=== PATIENT | female | born 1950 | race Caucasian/White ===

== ENCOUNTER 2021-12-25 09:02 | Emergency (ER) | payer MEDICARE, SELFPAY ==
[2021-12-25 09:02] VITALS: BP 140/86; PULSE 72; RESP 16; TEMP 36.8; O2SAT 98; BMI 32.3
[2021-12-25 09:10] VITALS: BP 140/86; PULSE 72; RESP 16; TEMP 36.8; O2SAT 98; BMI 32.5
--- NOTE | 2021-12-25 09:35 | HMH.EDUTC ---
[facility] [place] Clinical Impression: Infected tick bite of scalp Qualifiers: Encounter type: initial encounter Qualified Code(s): S00.06XA - Insect bite (nonvenomous) of scalp, initial encounter; L08.9 - Local infection of the skin and subcutaneous tissue, unspecified; W57.XXXA - Bitten or stung by nonvenomous insect and other nonvenomous arthropods, initial encounter Disposition: Home, Self-Care Condition on Discharge: Good Instructions: DI for Cellulitis -- Adult Additional Instructions: Take antibiotics as directed until gone. Use sun protection while on antibiotics. Return to [facility] if symptoms worsen. Prescriptions: Doxycycline Monohydrate [Doxycycline [place] 100mg Tab] 100 mg PO Q12 10 Days #20 tab Transmission Status: Pending to [facility] Referrals: Jeni Cohen MD [Primary Care Provider] - Time of Disposition: 09:47 Medical Decision Making - Rony Inquiry Pt receiving controlled substance: No Vital Signs: 12/25/21 09:02 12/25/21 09:10 Temperature 98.3 F 98.3 F Temperature Source Oral Oral Pulse Rate [Radial] 72 72 Respiratory Rate 16 16 Blood Pressure [Right Arm] 140/86 140/86 Blood Pressure Mean [Right Arm] 104 104 Blood Pressure Source [Right Arm] Automatic Cuff Blood Pressure Position [Right Arm] Sitting Sitting 02 Sat by Pulse Oximetry 98 98 Oxygen Delivery Method Room Air Room Air [facility] [place] HPI - General Stated complaint: tick bite 12/24, numbness Time Seen by Provider: 12/25/21 09:35 Mode of Arrival: Ambulatory Source of Information: Patient Limitations: No Limitations Description of Symptoms (Recalled from Triage Doc. by RN): PATIENT STATES SHE HAD A TICK IN RIGHT SIDE OF TOP OF HEAD THAT SHE NOTICED LAST NIGHT. SHE REPORTS HE REMOVED THE TICK AND THINKS HE GOT IT ALL OUT. PATIENT C/O NUMBNESS TO AREA WHERE TICK WAS HEENT Symptoms (Recalled from RN notes): Yes Resp Symptoms (Recalled from RN notes): No Skin Symptoms (Recalled from RN notes): Yes MS Symptoms (Recalled from RN notes): No Functional Status (Recalled from RN notes): WNL - History of Present Illness Provider Complaint: Patient found an attached tick on the right crown area of her head last night. Her removed it and is fairly certain it was removed in its entirety, but it seemed to be engorged so she isn't sure how long it had been there. The area on top of her scalp where it bit her feels numb to touch. No fever. No body aches. No vomiting or diarrhea. Onset (ago): day(s) (1) Location: head Relieving factors: none Exacerbating factors: none Associated symptoms: denies other symptoms Treatments prior to arrival: none - Related Data Previous Rx's Medication Instructions Recorded Doxycycline Monohydrate 100 mg PO Q12 10 Days #20 tab 12/25/21 [Doxycycline [place] 100mg Tab] Allergies Allergy/AdvReac Type Severity Reaction Status Date / Time Penicillins Allergy Verified 12/25/21 09:33 - Worker's Comp Is this a Worker's Comp case?: No [facility] History - Hepatitis A Screen Attestation statement:: This patient has been screened for Hepatitis A risk factors. I have reviewed the patient's past medical history: Yes ROS Obtained: Yes All systems reviewed & no additional complaints - Integumentary/Breasts Skin/Breast: Reports as per HPI, Reports itching, Reports rash Physical Exam - General General appearance: alert, in no apparent distress - Head Head exam: normocephalic - Expanded Head Exam Head exam physical: Present: other (5 mm erythematous, edematous lesion right crown area) - Eye Eye exam: Present: normal appearance, PERRL - Chest Chest inspection: Present: normal inspection - Respiratory Respiratory exam: Present: normal lung sounds bilaterally - Cardiovascular Cardiovascular exam: Present: regular rate, normal rhythm - Neurological Exam Neurological exam: Present: alert, oriented X3 - Psychiatric Psychiatric exam: Present: normal affect,
[2021-12-25 09:51] VITALS: BP 140/86; PULSE 72; RESP 16; TEMP 36.8; O2SAT 98
== END 2021-12-25 09:55 | disposition home or self-care (01) ==
PROVIDERS: Emergency Provider Physician Assistant; PCP Family Medicine
DX: S00.06XA Insect bite (nonvenomous) of scalp, initial encounter (principal); W57.XXXA Bitten or stung by nonvenomous insect and other nonvenomous arthropods, initial encounter
CPT/HCPCS: 99283

== ENCOUNTER 2024-06-17 09:52 | Outpatient (CLI) | payer MEDICARE, SELFPAY ==
[2024-06-17 10:36] LABS: Uric Acid 3.3 mg/dl (2.5-6.2)
== END 2024-06-17 23:59 | disposition home or self-care (01) ==
PROVIDERS: PCP Family Medicine; Visit Provider Podiatrist Foot & Ankle Surgery
DX: M10.071 Idiopathic gout, right ankle and foot (principal); M24.871 Other specific joint derangements of right ankle, not elsewhere classified; R60.0 Localized edema; M79.671 Pain in right foot; M79.672 Pain in left foot
CPT/HCPCS: 36415; 84550

== ENCOUNTER 2024-07-14 09:12 | Emergency (ER) | payer MEDICARE, SELFPAY ==
--- NOTE | 2024-07-14 10:15 | EXP.UTC ---
Discharge Plan Disposition Patient Disposition: Home, Self-Care Condition: Good Prescriptions Prescriptions: New ciprofloxacin HCl [Cipro] 500 mg tablet 500 mg PO BID 10 Days Qty: 20 0RF ondansetron 4 mg Tablet,Disintegrating 4 mg PO Q8H PRN (Reason: Nausea) Qty: 12 0RF No Action doxycycline monohydrate 100 MG tablet 100 mg PO Q12 10 Days Qty: 20 0RF Referrals Follow up/Referrals: Jeni Cohen MD [Primary Care Provider] - See instructions Activity Restrictions/Add. Instructions Additional Instructions/Restrictions: Drink plenty of fluids. Take tylenol or ibuprofen for pain or fever. Take the medications as directed. Follow up with your regular doctor. GO TO THE ER FOR ANY WORSENING SYMPTOMS Clinical Impressions Clinical Impression: Diverticulitis Instructions Patient Instructions: DI for Diverticulitis, Ondansetron, Ciprofloxacin Print Language Print Language: Bulgarian Discharge ED Provider: Chriss Mackenzie [facility] General Stated complaint: lower abd pain Time Seen by Provider: 07/14/24 10:15 History of Present Illness Provider Complaint: She states that for the past 2 days she has been having the symptoms she has when she has a diverticulitis flare up. She refuses lab work and she refuses to be transferred to the er. Related Data Previous Rx's ?Medication ?Instructions ?Recorded doxycycline monohydrate 100 mg 100 mg PO Q12 10 days #20 tabs 12/25/21 tablet ciprofloxacin HCl 500 mg tablet 500 mg PO BID 10 days #20 tabs 07/14/24 (Cipro) ondansetron 4 mg disintegrating 4 mg PO Q8H PRN Nausea #12 tabs 07/14/24 tablet Allergies Allergy/AdvReac Type Severity Reaction Status Date / Time Penicillins Allergy Verified 12/25/21 09:33 [facility] Disclaimer: The information contained in this section may have been updated after the patient was seen, as this information can be updated by other users. Social History Smoking Status: Never smoker alcohol intake: never current occupational status: retired Travel in the last 8 weeks: None ROS Obtained: Yes All systems reviewed & no additional complaints except as documented Constitutional Constitutional: Denies chills, Denies fever(s) and Reports poor appetite ENT Ears, Nose, Mouth, and Throat: Denies dizziness and Denies sore throat Cardiovascular Cardiovascular: Denies dyspnea Respiratory Respiratory: Denies chest congestion, Denies cough and Denies dyspnea Gastrointestinal Gastrointestingal: Reports as per HPI Genitourinary Female Genitourinary: Denies difficulty voiding, Denies dysuria, Denies hematuria, Denies urinary frequency, Denies urinary incontinence, Denies urinary hesitancy and Denies urinary urgency Musculoskeletal Musculoskeletal: Denies arthralgias Integumentary/Breasts Skin/Breast: Denies rash Neurologic Neurologic: Denies dizziness Physical Exam General General appearance: alert and in no apparent distress Head Head exam: atraumatic and normocephalic Eye Eye exam: Present normal appearance, PERRL and EOMI ENT ENT exam: Present normal exam, normal oropharynx, mucous membranes moist, TM's normal bilaterally and normal external ear exam Neck Neck exam: Present normal inspection, full ROM and trachea midline; Absent tenderness, meningismus or lymphadenopathy Chest Chest inspection: Present normal inspection and symmetric chest wall rise; Absent tenderness, rash or abscess Respiratory Respiratory exam: Present normal lung sounds bilaterally; Absent respiratory distress, wheezes or stridor Cardiovascular Cardiovascular exam: Present regular rate and normal rhythm; Absent irregular rhythm, systolic murmur, diastolic murmur or JVD Abdominal Exam Abdominal exam: Present soft and normal bowel sounds; Absent distention, tenderness, guarding, rebound, rigidity, psoas sign, obturator sign, heel tap sign, Lott's sign, Rovsing's sign or tenderness at McBurney's Point Extremities Exam Extremities exam: Present normal inspection and full ROM; Absent tenderness Back Exam Back exam: Present normal inspection and full ROM; Absent tenderness, CVA tenderness (R) or CVA tenderness (L) Neurological Exam Neurological exam: Present alert, oriented X3 and CN II-XII intact Psychiatric Psychiatric exam: Present normal affect and normal mood Skin Skin exam: Present warm, dry, intact and normal color Lymphatic Lymphatic Findings: no adenopathy Medical Decision Making Medical Records Medical records reviewed: No I reviewed the patient's medical records. Screening: Per USPSTF and CDC recommendations, given the prevalence of disease in our region, it is our hospital?s policy to screen for HIV and viral Hepatitis for all patients aged 18 and over and those with ongoing risk factors. Rony Inquiry Pt receiving controlled substance: No
[2024-07-14 10:29] VITALS: BP 121/65; PULSE 78; RESP 18; TEMP 36.6; O2SAT 97; BMI 31.1
[2024-07-14 10:41] VITALS: BP 121/65; PULSE 78; RESP 18; TEMP 36.6
== END 2024-07-14 10:42 | disposition home or self-care (01) ==
PROVIDERS: Emergency Provider Nurse Practitioner Family; PCP Family Medicine
DX: K57.92 Diverticulitis of intestine, part unspecified, without perforation or abscess without bleeding (principal); R10.9 Unspecified abdominal pain; R63.8 Other symptoms and signs concerning food and fluid intake
CPT/HCPCS: 99212; G0381

== ENCOUNTER 2025-07-25 10:45 | Emergency (ER) | payer MEDICARE, SELFPAY ==
--- OUTSIDE RECORDS SUMMARY | 2025-07-25 10:51 | XMS_ITS | Encounter Summary ---
Author Organization [employer] ([place], [place], [place], [place], [place]) Address [address] [place] [address] Care Team Providers Care Airport Control Operator Name Role Phone Daniel Cohen MD Primary Care Provider [phone] Encounter Details Date Type Department Care Team (Late st Contact Info) Description 08/13/2019 Transcribed Document [facility] [place] [facility] [place] [address] ProviderCarmela MD [address] [place] [id number] Social History Tobacco Use Types Packs/Day Years Used Date Smoking Tobacco: Never Assessed Comments Unknown Sex and Gender Information Value Date Recorded Sex Assigned at Not on file Legal Sex Female 5:31 PM CDT Gender Identity Not on file Sexual Orientation Not on file documented as of this encounter Miscellaneous Notes * Cerner Conversion Note - Historical ProviderMD - 08/13/2019 12:16 PM 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 Adult Entered On: 08/13/2019 12:22 EST Performed On: 08/13/2019 12:16 EST by Judy Wren RN Height and Weight, Clinical Dosing Height Source : Stated Height Entry Format : [place] Height, Feet : 5 ft(Converted to: 152 cm, 60 Inch) Height, Inches : 6 Inch(Converted to: 0 ft 6 Inch, 15.24 cm) Clinical Height : 167.64 cm Weight Source : Standing scale Weight Entry Format : [place] Clinical Dosing Weight : 87.27 kg Weight, Pounds : 192 lb Body Surface Area (BSA) : 1.97 m2 Body Mass Index : 31.1 kg/m2 (HI) [place] Body Weight : 59 kg Judy Wren RN - 08/13/2019 12:16 EST Health Histories Smoking Status : Never (less than 100 in lifetime; none in last 30 days) Smokeless Tobacco Status : Never Judy Wren RN - 08/13/2019 12:16 EST Social History (As Of: 08/13/2019 12:22:46 EST) Infectious Disease History Physical contact outside [place] in the last 30 days : No Infectious Disease History : Chicken pox/Shingles, Influenza, Measles, Mumps Tuberculosis Symptoms : None Judy Wren RN - 08/13/2019 12:16 EST Anesthesia/Transfusion History Family History of Anesthesia Reaction : No prior transfusion(s) Transfusion History : Prior anesthesia without reaction Family History of Anesthesia Reaction : None Judy Wren RN - 08/13/2019 12:16 EST Functional Assessment Living Situation : Home Current Home Treatments : CPAP Judy Wren RN - 08/13/2019 12:16 EST [place] Suicide Severity Rating Scale (C-SSRS) CSSRS Past Month Wish to be : No CSSRS Past Month Suicidal Thoughts : No CSSRS Lifetime Suicide Behavior : No Suicide Severity Rating Score : 0 Suicide Severity Rating : No Additional Care Required at this time Judy Wren RN - 08/13/2019 12:16 EST Psychosocial History Currently in Unsafe Situation : No Judy Wren RN - 08/13/2019 12:16 EST Advance Directive Patient has Advance Directive *Q : Yes, Advance Directive not with the patient Advance Directive Type : Medical durable power of contract attorney (proxy) Copy Advance Directive Verified/on Chart : No Judy Wren RN - 08/13/2019 12:16 EST General Info Want Family/Rep/Phys Notified of Admit : No Emergency Contact #1 : Jamin Harp Emergency Contact #1 Phone Number : [phone] Emergency Contact #1 Relationship : spouse Emergency Contact #2 : Na Emergency Contact #2 Phone Number : na Emergency Contact #2 Relationship : na Primary Language : Mongolian Communication Barrier : None Judy Wren RN - 08/13/2019 12:16 EST Sleep Apnea Risk Assmt BiPAP/CPAP Ordered for Home Use : Yes Hx of Obstructive Sleep Apnea Diagnosis : Yes BiPAP/CPAP Used at Home : Yes Age over 50 Years Old : Yes Gender Male : No Judy Wren RN - 08/13/2019 12:16 EST Kartik Scale Kartik Sensory Perception : No impairment Kartik Moisture : Rarely moist Kartik Activity : Walks frequently Kartik Mobility : No limitation Kartik Nutrition : Adequate Kartik Friction and Shear : No apparent problem Kartik Score : 22 Judy Wren RN - 08/13/2019 12:16 EST Fall Risk Scales ABCs Fall Injury Risk Identification : None PABLO Hx Falls Immediate/Within 3 Months : No Pablo Secondary Diagnosis : Yes PABLO Use of Ambulatory Aid : None PABLO IV Therapy or IV Access : Yes Pablo Gait/Transferring : Normal, bedrest, immobile Pablo Mental Status : Oriented to own ability Pablo Fall Risk Score : 35 PABLO Fall Scale Risk Level : 25-45 Medium Risk [place] Fall Interventions : Bed in low position, Wheels locked Judy Wren RN - 08/13/2019 12:16 EST Valuables and Belongings Valuables and Belongings : Clothing, Jewelry Clothing : Common streetwear Clothing Disposition : With family Jewelry : Earrings, Necklace, Ring Jewelry Disposition : With patient Judy Wren RN - 08/13/2019 12:16 EST Electronically signed by Sher [facility] Conversion Childcare Aide Cerner at 11/16/2022 12:57 PM CDT documented in this encounter Plan of Treatment Not on file documented as of this encounter Visit Diagnoses Not on filedocumented in this encounter Care Teams Airport Control Operator Relationship Specialty Start Date End Date Daniel Cohen MD [address] [place] [address] PCP - General Family Medicine 02/06/24 documented as of this encounter
--- OUTSIDE RECORDS SUMMARY | 2025-07-25 10:51 | XMS_ITS | Encounter Summary ---
Author Organization [employer] ([place], [place], [place], [place], [place]) Address [address] [place] [address] Care Team Providers Care Grouter Helper Name Role Phone Daniel Cohen MD Primary Care Provider [phone] Encounter Details Date Type Department Care Team (Late st Contact Info) Description 08/13/2019 Transcribed Document [facility] [place] [facility] [place] [address] ProviderCarmela MD [address] [place] [id number] Social History Tobacco Use Types Packs/Day Years Used Date Smoking Tobacco: Never Assessed Comments Unknown Sex and Gender Information Value Date Recorded Sex Assigned at Not on file Legal Sex Female 5:31 PM CDT Gender Identity Not on file Sexual Orientation Not on file documented as of this encounter Miscellaneous Notes * Cerner Conversion Note - Carmela Aaron MD - 08/13/2019 1:06 PM WELLNESS EDUCATOR Patient Education Materials Follows: General Anesthesia, Adult, Care After This sheet gives you information about how to care for yourself after your procedure. Your health care provider may also give you more specific instructions. If you have problems or questions, contact your health care provider. What can I expect after the procedure? After the procedure, the following side effects are common: ??? Pain or discomfort at the IV site. ??? Nausea. ??? Vomiting. ??? Sore throat. ??? Trouble concentrating. ??? Feeling cold or chills. ??? Weak or tired. ??? Sleepiness and fatigue. ??? Soreness and body aches. These side effects can affect parts of the body that were not involved in surgery. Follow these instructions at home: For at least 24 hours after the procedure: ??? Have a responsible adult stay with you. It is important to have someone help care for you until you are awake and alert. ??? Rest as needed. ??? Do not: ? Participate in activities in which you could fall or become injured. ? Drive. ? Use heavy machinery. ? Drink alcohol. ? Take sleeping pills or medicines that cause drowsiness. ? Make important decisions or sign legal documents. ? Take care of children on your own. Eating and drinking ??? Follow any instructions from your health care provider about eating or drinking restrictions. ??? When you feel hungry, start by eating small amounts of foods that are soft and easy to digest (bland), such as toast. Gradually return to your regular diet. ??? Drink enough fluid to keep your urine pale yellow. ??? If you vomit, rehydrate by drinking water, juice, or clear broth. General instructions ??? If you have sleep apnea, surgery and certain medicines can increase your risk for breathing problems. Follow instructions from your health care provider about wearing your sleep device: ? Anytime you are sleeping, including during daytime naps. ? While taking prescription pain medicines, sleeping medicines, or medicines that make you drowsy. ??? Return to your normal activities as told by your health care provider. Ask your health care provider what activities are safe for you. ??? Take bcur-unr-konosvp and prescription medicines only as told by your health care provider. ??? If you smoke, do not smoke without supervision. ??? Keep all follow-up visits as told by your health care provider. This is important. Contact a health care provider if: ??? You have nausea or vomiting that does not get better with medicine. ??? You cannot eat or drink without vomiting. ??? You have pain that does not get better with medicine. ??? You are unable to pass urine. ??? You develop a skin rash. ??? You have a fever. ??? You have redness around your IV site that gets worse. Get help right away if: ??? You have difficulty breathing. ??? You have chest pain. ??? You have blood in your urine or stool, or you vomit blood. Summary ??? After the procedure, it is common to have a sore throat or nausea. It is also common to feel tired. ??? Have a responsible adult stay with you for the first 24 hours after general anesthesia. It is important to have someone help care for you until you are awake and alert. ??? When you feel hungry, start by eating small amounts of foods that are soft and easy to digest (bland), such as toast. Gradually return to your regular diet. ??? Drink enough fluid to keep your urine pale yellow. ??? Return to your normal activities as told by your health care provider. Ask your health care provider what activities are safe for you. This information is not intended to replace advice given to you by your health care provider. Make sure you discuss any questions you have with your health care provider. Document Released: 10/23/2001 Document Revised: 03/02/2018 Document Reviewed: 03/02/2018 [employer] Interactive Patient Education ? 2019 [employer]. Colonoscopy, Adult, Care After This sheet gives you information about how to care for yourself after your procedure. Your health care provider may also give you more specific instructions. If you have problems or questions, contact your health care provider. What can I expect after the procedure? After the procedure, it is common to have: ??? A small amount of blood in your stool for 24 hours after the procedure. ??? Some gas. ??? Mild abdominal cramping or bloating. Follow these instructions at home: General instructions ??? For the first 24 hours after the procedure: ? Do not drive or use machinery. ? Do not sign important documents. ? Do not drink alcohol. ? Do your regular daily activities at a slower pace than normal. ? Eat soft, rpss-sn-txnbfi foods. ? Rest often. ??? Take txfd-otm-zqpkrri or prescription medicines only as told by your health care provider. ??? It is up to you to get the results of your procedure. Ask your health care provider, or the department performing the procedure, when your results will be ready. Relieving cramping and bloating ??? Try walking around when you have cramps or feel bloated. ??? Apply heat to your abdomen as told by your health care provider. Use a heat source that your health care provider recommends, such as a moist heat pack or a heating pad. ? Place a towel between your skin and the heat source. ? Leave the heat on for 20?30 minutes. ? Remove the heat if your skin turns bright red. This is especially important if you are unable to feel pain, heat, or cold. You may have a greater risk of getting burned. Eating and drinking ??? Drink enough fluid to keep your urine clear or pale yellow. ??? Resume your normal diet as instructed by your health care provider. Avoid heavy or fried foods that are hard to digest. ??? Avoid drinking alcohol for as long as instructed by your health care provider. Contact a health care provider if: ??? You have blood in your stool 2?3 days after the procedure. Get help right away if: ??? You have more than a small spotting of blood in your stool. ??? You pass large blood clots in your stool. ??? Your abdomen is swollen. ??? You have nausea or vomiting. ??? You have a fever. ??? You have increasing abdominal pain that is not relieved with medicine. This information is not intended to replace advice given to you by your health care provider. Make sure you discuss any questions you have with your health care provider. Document Released: 02/28/2005 Document Revised: 04/10/2017 Document Reviewed: 09/27/2016 [employer] Interactive Patient Education ? 2018 [employer]. documented in this encounter Plan of Treatment Not on file documented as of this encounter Visit Diagnoses Not on filedocumented in this encounter Care Teams Grouter Helper Relationship Specialty Start Date End Date Daniel Cohen MD [address] [place], [place] [id number] PCP - General Family Medicine 02/06/24 documented as of this encounter
--- OUTSIDE RECORDS SUMMARY | 2025-07-25 10:51 | XMS_ITS | Referral Summary ---
Author Organization [facility] ([place], [place], [place], [place], [place]) Address [address] [place] [address] Care Team Providers Care Rental Manager Name Role Phone Daniel Cohen MD Primary Care Provider [phone] Allergies Active Allergy Reactions Criticality Noted Date Comments Azithromycin 02/06/2024 Penicillin 02/06/2024 Medications estradioL (VIVELLE-DOT) 0.05 mg/[address] 1 patch onto the skin twice a week. 01/11/2024 Active metoprolol tartrate (LOPRESSOR) 25 MG tablet Take 1 tablet (25 mg total) by mouth 2 (two) times daily. 01/24/2024 Active progesterone (PROMETRIUM) 100 MG capsule Take 1 capsule (100 mg total) by mouth nightly. 12/25/2023 Active zolpidem (AMBIEN) 10 mg tablet Take 1 tablet (10 mg total) by mouth every night as needed. 01/11/2024 Active magnesium oxide (MAG-OX) 400 mg (241.3 mg magnesium) tablet Take 1 tablet (400 mg total) by mouth 2 (two) times daily. Active BERBERINE CHLORIDE ORAL Take by mouth. Active levocetirizine (XYZAL) 5 MG tablet Take 1 tablet (5 mg total) by mouth every evening. Active Active Problems Problem Noted Date Diagnosed Date Colon cancer screening 10/25/2023 Social History Tobacco Use Types Packs/Day Years Used Date Smoking Tobacco: Never Smokeless Tobacco: Never Tobacco Cessation:Counseling Given: Not Answered Alcohol Use Standard Drinks/Week Comments Never 0 (1 standard drink = 0.6 oz pur e alcohol) Food Insecurity Answer Date Recorded Food run out past 12 months Not on file 03/2024 Food did not last past 12 months Not on file 02/06/2024 Employment Answer Date Recorded Help finding and keeping a job Not on file 0 02/06/2024 Family and Community Support Answer Jose e Recorded Help with Day to Day Activities Not on file 02/06/2024 Feeling Lonely or Isolated Not on file 02/05 Educational Attainment Answer Date Toño rded Speak language other than Sudanese at home Not on file 02/06/2024 Want help with school or training Not on file 02/06/2024 Substance Use Answer Date Recorded Used prescription meds for non-medical reasons N ot on file 02/06/2024 Used illegal drugs past 12 months Not on file 02/06/2024 Comments No Sex and Gender Information Value Date Recorded Sex Assigned at Not on file Legal Sex Female 5:31 PM CDT Gender Identity Not on file Sexual Orientation Not on file Last Filed Vital Signs Vital Sign Reading Time Taken Comments Blood Pressure 112/63 02/06/2024 2:19 PM EDT Pulse 58 02/06/2024 2:19 PM EDT Temperature 36.3 C (97.3 F) 02/06/2024 2:08 PM EDT Respiratory Rate 16 02/06/2024 2:19 PM EDT Oxygen Saturation 96% 02/06/2024 2:19 PM EDT Inhaled Oxygen Concentration - - Weight 87.3 kg (192 lb 6.4 oz) 02/06/2024 12:32 PM EDT Height 167.6 cm (5' 6 ) 02/06/2024 12:32 PM EDT Body Mass Index 31.05 02/06/2024 12:32 PM EDT Plan of Treatment Not on file Procedures Procedure Name Priority Date/Time Associated Diagnosis Comments COLONOSCOPY Routine 08/13/2019 from Last 3 Months or Most Recently Relevant to Health Maintenance Results * COLONOSCOPY (08/13/2019) Tara Maier MD HEALTH MAINTENANCE Final Resu lt from Last 3 Months or Most Recently Relevant to Health Maintenance Insurance [facility] [employer] Care Teams Rental Manager Relationship Specialty Start Date End Date Daniel Cohen MD [address] [place], [place] [id number] PCP - General Family Medicine 02/06/24
--- OUTSIDE RECORDS SUMMARY | 2025-07-25 10:51 | XMS_ITS | Encounter Summary ---
Author Organization [facility] ([place], [place], [place], [place], [place]) Address [address] [place] [address] Care Team Providers Care Rn Acute Name Role Phone Daniel Cohen MD Primary Care Provider [phone] Encounter Details Date Type Department Care Team (Late st Contact Info) Description 08/13/2019 Transcribed Document [facility] [place] [facility] Family Medicine [facility] [place] [address] ProviderCarmela MD [address] [place] [address] [id number] Social History Tobacco Use Types Packs/Day Years Used Date Smoking Tobacco: Never Assessed Comments Unknown Sex and Gender Information Value Date Recorded Sex Assigned at Not on file Legal Sex Female 5:31 PM CDT Gender Identity Not on file Sexual Orientation Not on file documented as of this encounter Miscellaneous Notes * Cerner Conversion Note - Historical ProviderMD - 08/13/2019 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 Name: YAN MAJOR /Sex: 1950 Female Med Rec #: [id number] Physician: ROD AKHTAR MD-GAE Financial #: [id number] Pt. Type: O Room/Bed: / Admit/Disch: 08/13/19 10:45:00 - 08/13/19 15:27:00 Institution: [facility] Endo - Case Attendance Entry 1 Entry 2 Entry 3 Case Attendee ROD AKHTAR MD-Bienvenido Graham APRN-JOHNNY FERGUSON MD-MEDNEZ Role Performed Surgeon/Proceduralist, ABA THERAPIST/Nurse Professor Of Fine Art Anesthesiologist of First Record Time In 08/13/19 12:45:00 08/13/19 12:45:00 08/13/19 12:45:00 Time Out 08/13/19 13:16:00 08/13/19 13:16:00 08/13/19 13:16:00 Procedure Colonoscopy, Colon Colonoscopy, Colon Colonoscopy, Colon Polypectomy Polypectomy Polypectomy Other Attendee Superficial Wound Closed By: Last Modified By: Ally Coyne, Rn Keira Bermudez, Keira Bermudez, 08/27/19 10:59:40 Rn-Traveler 08/13/19 Rn-Traveler 08/13/19 13:13:51 13:13:51 Entry 4 Entry 5 Entry 6 Case Attendee Keira Bermudez WURTELE, JOHN L. Thayer, Dena, [place]LA Rn-Traveler Role Performed Rn Registry, First Scrub, First Rn Registry, First Time In 08/13/19 12:45:00 08/13/19 12:45:00 08/13/19 12:50:00 Time Out 08/13/19 12:50:00 08/13/19 13:16:00 08/13/19 13:16:00 Procedure Colonoscopy, Colon Colonoscopy, Colon Colonoscopy, Colon Polypectomy Polypectomy Polypectomy Other Attendee Superficial Wound Closed By: Last Modified By: Keira Bermudez, Keira Bermudez, Keira Bermudez, Rn-Traveler 08/13/19 Rn-Traveler 08/13/19 Rn-Traveler 08/13/19 13:13:51 13:13:51 13:13:51 [facility] Endo - Case Attendance Audit 08/27/19 10:59:40 Director Education: [id number] Modifier: [email or web address] 1 <*> Role Performed Surgeon/Proceduralist, Second 1 <*> Procedure Colonoscopy, Colon Polypectomy 08/13/19 13:13:51 Director Education: [id number] Modifier: [id number] 1 <+> Time Out 1 <*> Procedure Colonoscopy, Colon Polypectomy 2 <+> Time Out 2 <*> Procedure Colonoscopy, Colon Polypectomy 3 <+> Time Out 3 <*> Procedure Colonoscopy, Colon Polypectomy 4 <*> Procedure Colonoscopy, Colon Polypectomy 5 <+> Time Out 5 <*> Procedure Colonoscopy, Colon Polypectomy 6 <+> Time Out 6 <*> Procedure Colonoscopy, Colon Polypectomy 08/13/19 13:00:52 Director Education: [id number] Modifier: [id number] 1 <*> Procedure Colonoscopy 2 <*> Procedure Colonoscopy 3 <*> Procedure Colonoscopy 4 <*> Procedure Colonoscopy 5 <*> Procedure Colonoscopy 6 <*> Procedure Colonoscopy 08/13/19 12:51:09 Director Education: [id number] Modifier: [id number] 1 <+> Time In 1 <*> Procedure Colonoscopy 2 <+> Time In 2 <*> Procedure Colonoscopy 3 <+> Time In 3 <*> Procedure Colonoscopy 4 <+> Time In 4 <+> Time Out 4 <*> Procedure Colonoscopy 5 <+> Time In 5 <*> Procedure Colonoscopy <+> 6 Case Attendee <+> 6 Role Performed <+> 6 Time In <+> 6 Procedure 08/13/19 12:50:13 Director Education: [id number] Modifier: [id number] <+> 1 Case Attendee <+> 1 Role Performed <+> 1 Procedure <+> 2 Case Attendee <+> 2 Role Performed <+> 2 Procedure <+> 3 Case Attendee <+> 3 Role Performed <+> 3 Procedure <+> 4 Case Attendee <+> 4 Role Performed <+> 4 Procedure <+> 5 Case Attendee <+> 5 Role Performed <+> 5 Procedure 08/13/19 12:41:55 Director Education: [id number] Modifier: [id number] Entry 1 was deleted. Higher numbered entries shifted one position to fill the gap. <-> 1 Case Attendee ROD AKHTAR MD-GAE <-> 1 Role Performed Surgeon/Proceduralist, First <-> 1 Procedure Colonoscopy [facility] Endo - Case times Entry 1 Patient In Room Time 08/13/19 12:45:00 Out Room Time 08/13/19 13:16:00 Anesthesia Start Time 08/13/19 12:45:00 Stop Time 08/13/19 13:16:00 Surgery / Procedure Times Start Time 08/13/19 12:53:00 Stop Time 08/13/19 13:13:00 Last Modified By: Keira Bermudez Rn-Traveler 08/13/19 13:13:49 [facility] Endo - Case times Audit 08/13/19 13:13:49 Director Education: [id number] Modifier: [id number] <+> 1 Out Room Time <+> 1 Stop Time <+> 1 Stop Time 08/13/19 12:53:20 Director Education: [id number] Modifier: [id number] <+> 1 Start Time [facility] Endo - Cultures and Spec Summary Entry 1 Cultrures and Specimens Specimen Ordered: Yes Test(s) Routine/Path-Lab Requested/Final Disposition Last Modified By: Keira Bermudez Rn-Traveler 08/13/19 13:03:03 [facility] Endo - Delays Entry 1 Delay Reason Other, No Delay Duration 0 Minute(s) Last Modified By: Keira Bermudez Rn-Traveler 08/13/19 12:51:20 [facility] Endo - Departure from OR Entry 1 Integumentary Assessment Transfer/Handoff Transfer to Other Handoff Reported to Ally Coyne Rn Post-op Transport Stretcher/rney Via Patient Transport Bienvenido Funez, Accompanied by Aidan MASSEY Dorothy M Rn-Traveler Last Modified By: Keira Bermudez Rn-Traveler 08/13/19 12:51:36 [facility] Endo - Endoscopy Details Entry 1 Abdomen Procedure Soft, Non-distended, Assessment Non-Tender Procedure Abdomen 08/13/19 12:51:00 Assessment D/T Radio Frequency Ablation Last Modified By: Keira Bermudez Rn-Traveler 08/13/19 12:51:45 [facility] Endo - Fire Risk Assessment Entry 1 Fire Info Surgical Site or 0- No Incision Above the Xyphoid Open O2 Source 1- Yes (Mask or Cannula) Available Ignition 1- Yes (ESU, Laser, Light Source) Fire Risk 2 Assessment Score Fire Score Fire Risk Yes Assessment Complete Fire Risk Hortencia Elder RN Assessment Verified By Fire Risk 08/13/19 13:01:00 Assessment Verified Date/Time Fire Risk Last Modified By: Keira Bermudez Rn-Traveler 08/13/19 13:02:58 [facility] Endo - Fire Risk Assessment Audit 08/13/19 13:02:58 Director Education: [id number] Modifier: [id number] <+> 1 Fire Risk Assessment Complete <+> 1 Fire Risk Assessment Verified By <+> 1 Fire Risk Assessment Verified Date/Time 08/13/19 13:02:40 Director Education: [id number] Modifier: [id number] 1 <-> Fire Risk Assessment Complete Yes 1 <-> Fire Risk Assessment Verified By Hortencia Elder, [place]LA 1 <-> Fire Risk Assessment Verified 08/13/19 12:51:00 Date/Time [facility] Endo - General Case Glass Polisher 1 Case Information OR Endo 01 [facility] Case Level 1 Room Verified Yes Wound Class III - Contaminated Specialty SN Gastroenterology Anesthesia Type General ASA Class 2 Diagnosis Preop Diagnosis screening Postop Same As Preop No Postop Diagnosis diverticulosis, ascending polyp X3, sigmoid polyp X2, Last Modified By: Keira Bermudez Rn-Traveler 08/13/19 13:15:28 [facility] Endo - General Case Data Audit 08/13/19 13:15:28 Director Education: [id number] Modifier: [id number] 1 <*> Postop Diagnosis diverticulosis, ascending polyp X3, sigmoid polyp X2 08/13/19 13:11:50 Director Education: [id number] Modifier: [id number] 1 <*> Postop Diagnosis diverticulosis, ascending polyp X3, sigmoid polyp 08/13/19 13:10:53 Director Education: [id number] Modifier: [id number] 1 <*> Postop Diagnosis diverticulosis, ascending polyp X3 08/13/19 13:09:32 Director Education: [id number] Modifier: [id number] 1 <*> Postop Diagnosis diverticulosis, ascending polyp X2 08/13/19 13:05:04 Director Education: [id number] Modifier: [id number] 1 <*> Postop Diagnosis diverticulosis 08/13/19 13:00:23 Director Education: [id number] Modifier: [id number] 1 <*> Postop Same As Preop Yes 1 <*> Postop Diagnosis screening 08/13/19 12:55:21 Director Education: [id number] Modifier: [id number] <+> 1 Specialty <+> 1 ASA Class <+> 1 Anesthesia Type <+> 1 Room Verified [facility] Endo - Intraoperative Assessment Entry 1 Valid History / Yes Physical in Chart Preoperative Yes Checklist Reviewed/Evaluated Patient is Latex Yes, protocol initiated Sensitive Last Modified By: Keira Bermudez Rn-Traveler 08/13/19 12:52:50 [facility] Endo - Intraoperative Equipment Entry 1 Type Scope Equipment Intraop Monitoring Electrocardiogram Three lead placement (ECG) Electrode Placement Blood Pressure Non-Invasive BP Device Source Antiembolic Devices Scopes Flexible Endoscopes Colonoscope, Peds Used Scope Serial P Number/Identificatio n Number Photo/Video Documentation Last Modified By: Keira Bermudez Rn-Traveler 08/13/19 12:53:16 [facility] Endo - Patient Positioning Entry 1 Procedure Colonoscopy, Colon Polypectomy Body Position Lateral, right side up Left Arm Position Resting at side Right Arm Position Resting at side Left Leg Position Other Right Leg Position Other Position Comments Left leg straight, Right leg over left leg Positioned By Bienvenido Funez APRN-ANS Position Verified Last Modified By: Keira Bermudez Rn-Traveler 08/13/19 13:00:53 [facility] Endo - Patient Positioning Audit 08/13/19 13:00:53 Director Education: [id number] Modifier: [id number] 1 <*> Procedure Colonoscopy [facility] Endo - Sign In Entry 1 Patient, Site, Yes Procedure Identified Surgical Consent Yes Confirmed Surgical Site N/A Marked by person performing procedure Airway Hypothermia Risk No Warming Measures No Taken Last Modified By: Keira Bermudez Rn-Traveler 08/13/19 12:53:49 [facility] Endo - Sign Out Entry 1 RN Confirmation Surgical Yes Procedure(s) Identified Instrument, Sponge N/A and Sharps Counts Correct/Documented Equipment Problems N/A Documented Specimen Labeled Yes Correctly Urinary Catheter N/A Documented in IView Safety Checklist Yes Elements Complete? RN Sign Out Keira Bermudez, Signature Rn-Traveler RN Sign Out 08/13/19 13:16:00 Signature Date/Time Plan of Care Outcome - Fire Risk OUTCOME STATEMENT: Goal met Patient is free from injury related to surgical fire Plan of Care Outcome - Pt Positioning OUTCOME STATEMENT: Goal met Absence of signs and symptoms of positioning injury. Plan of Care Outcome - Skin Prep OUTCOME STATEMENT: Goal met Intraoperative care is consistent with measures to prevent infection Plan of Care Outcome - Xray/Images OUTCOME STATEMENT: N/A Absence of observable signs or symptoms of radiation injury Plan of Care Outcome - Counts OUTCOME STATEMENT: Goal met Absence of signs and symptoms of injury related to extraneous objects Last Modified By: Keira Bermudez, Rn-Traveler 08/13/19 13:14:22 [facility] Endo - Surgical Procedures Entry 1 Entry 2 Procedure Colonoscopy Colon Polypectomy Modifiers Additional ascending X3, sigmoid Procedure polyp X2 Description Primary Procedure Yes No Primary Surgeon ROD AKHTAR MD-GAE MARTIN, KATHLEEN, MD-GAE Start 08/13/19 12:53:00 08/13/19 12:53:00 Stop 08/13/19 13:13:00 08/13/19 13:13:00 Physician States 08/13/19 13:02:00 Cecum Reached Anesthesia Type MAC MAC Specialty SN Gastroenterology SN Gastroenterology Wound Class III - Contaminated III - Contaminated Last Modified By: Keira Bermudez Johnson, Dorothy M, Rn-Traveler 08/13/19 Rn-Traveler 08/13/19 13:14:35 13:14:35 [facility] Endo - Surgical Procedures Audit 08/13/19 13:14:35 Director Education: [id number] Modifier: [id number] 1 <*> Procedure Colonoscopy 1 <+> Stop 2 <*> Procedure Colon Polypectomy 2 <+> Stop 08/13/19 13:13:41 Director Education: [id number] Modifier: [id number] 1 <*> Procedure Colonoscopy 1 <+> Physician States Cecum Reached 08/13/19 13:11:42 Director Education: [id number] Modifier: [id number] 2 <*> Procedure Colon Polypectomy 2 <*> Additional Procedure Description ascending X3, sigmoid polyp 08/13/19 13:09:49 Director Education: [id number] Modifier: [id number] 2 <*> Procedure Colon Polypectomy 2 <*> Additional Procedure Description ascending X3 08/13/19 13:06:18 Director Education: [id number] Modifier: [id number] 2 <*> Procedure Colon Polypectomy 2 <*> Additional Procedure Description ascending 08/13/19 13:00:50 Director Education: [id number] Modifier: [id number] <+> 2 Procedure <+> 2 Primary Procedure <+> 2 Primary Surgeon <+> 2 Specialty <+> 2 Start <+> 2 Wound Class <+> 2 Anesthesia Type <+> 2 Additional Procedure Description [facility] Endo - Time Out Entry 1 Procedure to be Colonoscopy, Colon Performed Polypectomy Time Out Time Out Pause Time 08/13/19 12:54:00 All activity Yes suspended (unless life threatening emergency) Team Verbally Correct patient Confirms Information identity, Consent form is present and accurate, Agreement on the procedure to be done, Correct patient position, Relevant images/results properly labeled/appropriately displayed, Reconcile problems if responses among team members differ Antibiotic N/A Prophylaxis Administered Or In Progress Within the Last 60 Minutes Beta Jailene N/A Administered Venous N/A Thromboembolism Prophylaxis Required Anticipated Critical Events Surgeon None expected Last Modified By: Keira Bermudez Rn-Traveler 08/13/19 13:00:53 [facility] Endo - Time Out Audit 08/13/19 13:00:53 Director Education: [id number] Modifier: [id number] 1 <*> Procedure to be Performed Colonoscopy Case Comments <None> Finalized By: Ally Coyne Rn Document Signatures Signed By: Keira Bermudez Rn-Traveler 08/13/19 13:15 Ally Coyne Rn 08/27/19 10:59 Unfinalized History Date/Time Username Reason for Unfinalizing Freetext Reason for Unfinalizing 08/27/19 10:59 [facility] Chart Audit documented in this encounter Plan of Treatment Not on file documented as of this encounter Visit Diagnoses Not on filedocumented in this encounter Care Teams Rn Acute Relationship Specialty Start Date End Date Daniel Cohen MD [address] [place] [id number] PCP - General Family Medicine 02/06/24 documented as of this encounter
--- OUTSIDE RECORDS SUMMARY | 2025-07-25 10:51 | XMS_ITS | Encounter Summary ---
Author Organization [employer] ([place], [place], [place], [place], [place]) Address [address] [place] [address] Care Team Providers Care Structured Cabling Technician Name Role Phone Daniel Cohen MD Primary Care Provider [phone] Encounter Details Date Type Department Care Team (Late st Contact Info) Description 08/13/2019 Transcribed Document [facility] [place] [facility] [place] [address] ProviderCarmela MD [address] [place] [address] Social History Tobacco Use Types Packs/Day Years Used Date Smoking Tobacco: Never Assessed Comments Unknown Sex and Gender Information Value Date Recorded Sex Assigned at Not on file Legal Sex Female 5:31 PM CDT Gender Identity Not on file Sexual Orientation Not on file documented as of this encounter Miscellaneous Notes * Cerner Conversion Note - Historical ProviderMD - 08/13/2019 1:27 PM ENTRY LEVEL ACCOUNT EXECUTIVE [facility] [address] [place] [id number] YAN MAJOR :1950 Visit Time:08/13/2019 What to do next Your Diagnosis Personal history of colonic polyps, Personal history of colonic polyps Instructions From Your Care Team Diet after Discharge: Resume usual diet as tolerated, _, _ Fluid Restriction after Discharge: _ Activity after Discharge: As tolerated, _, _ Lifting Restrictions: _ Weight Bearing: _ Bedrest: _ Driving after Discharge: Do not drive for 24 hours May Return to Work/School: 08-14-2019 Showering/Bathing: _, _ Notify Provider of: unusual pain, bleeding or fever of 101 Wound/Incision Care after Discharge: _, _ Medical Equipment for Home Use: Home Health Services: Community Services: biopsy results will be mailed within 7-10 days follow up colonoscopy in 3 years Follow-Up Appointments Follow Up with ROD AKHTAR MD-[place] When Where: [address] [place] [address]- Medications What How Much When Instructions Next Dose estradiol (estradiol 0.05 mg/ 24 hours weekly transdermal film, extended release) Topical metoprolol (metoprolol succinate) 25 Milligram(s) Oral Every Day progesterone (progesterone 100 mg oral capsule) 1 Capsule(s) Oral At Bedtime zolpidem (Ambien 10 mg oral tablet) Oral At Bedtime as needed for as needed for insomnia Take your medications faithfully. Do NOT skip medication. Do NOT stop taking medications without the direction of a physician. Carry a list of your medications with you at all times, and take this medication list with you to your first follow up visit. Report any side effects. Avoid herbal remedies unless discussed with your physician. As part of your treatment plan, your physician may have prescribed a limited course of a controlled substance. This medication may be given to help people with moderate or severe pain or for other medical conditions, but there are risks involved with treatment. Common side effects may include nausea, constipation, drowsiness, sweating, itching, dry mouth, and rash. More serious side effects may include cognitive and motor impairment, like problems with thinking, concentrating, alertness, and movement (e.g. slowed reflexes), and driving and operating heavy machinery can be dangerous. It is important for you to talk to your physician if you have these side effects or questions. These controlled substances can produce physical dependence and be habit-forming if taken for an extended period of time, which means that the body has gotten used to them and may experience withdrawal symptoms if they are abruptly stopped. Withdrawal symptoms can include runny nose, sweating, goose bumps, diarrhea, abdominal cramping, rapid heartbeat, difficulty sleeping, and nervousness. Please dispose of unused and medications per pharmacy guidance. Education Materials General Anesthesia, Adult, Care After This sheet [...] activities are safe for you. ??? Take nvvm-qkh-jrfruyh and prescription medicines only as told by [...] 10/23/2001 Document Revised: 03/02/2018 Document Reviewed: 03/02/2018 [employer] Patient Education ?? 2019 [employer] Colonoscopy, Adult, Care After This sheet gives [...] slower pace than normal. ? Eat soft, emap-pe-xhekii foods. ? Rest often. ??? Take txca-php-uijrbpi or prescription medicines only as told by [...] source. ? Leave the heat on for 20???30 minutes. ? Remove the heat if your [...] ??? You have blood in your stool 2???3 days after the procedure. Get help right [...] 02/28/2005 Document Revised: 04/10/2017 Document Reviewed: 09/27/2016 Elsevier Interactive Patient Education ?? 2018 [employer] Emergency Awareness and Preventative Care STROKE is an EMERGENCY Every Minute Counts Act FAST and Check for these signs: FACE Does the face look uneven? ARM Does one arm drift down? SPEECH Does their speech sound strange? TIME Call at any sign of stroke Stroke Risk Factors Atrial Fibrillation (irregular heartbeat) Diabetes Family history of stroke Heart Disease Heavy alcohol use High Blood Pressure High Cholesterol Physical inactivity and obesity Smoking Cigarette Smoking The facts are clear, cigarette smoking will shorten your life. Smoking can cause many illnesses along the way. As a healthcare provider, we recommend that you stop smoking. Assistance with quitting is available by contacting 0-532-HMTE-NOW. This is a free resource providing counseling, support, and referral. Or you may contact your personal physician. [employer] Suicide Prevention Lifeline: The National Suicide Prevention Lifeline is a national network of local crisis centers that provides free and confidential emotional support to people in suicidal crisis or emotional distress 24 hours a day, 7 days a week. Don't Wait! Stop a Heart Attack Before it Starts What is a heart attack? A heart attack is damage or to a part of the heart from severely decreased or lack of blood flow to the heart. Over time, arteries can become narrow from the buildup of fat and cholesterol, which is called plaque. The plaque can rupture causing a blood clot to form. When the blood clot forms, the artery can become severely narrowed or completely blocked, causing a heart attack. Heart attack is the leading cause of in the [place]. 85% of muscle damage occurs within the first 2 hours. Delay in the recognition of heart attack symptoms increases the chances of . Know the early symptoms of a heart attack: Nausea Feeling of fullness in chest Jaw Pain Pain that travels down one or both arms Fatigue/being tired Anxiety Back Pain Chest pressure, squeezing, or discomfort Shortness of breath Sweating, or a cold sweat Feeling of impending doom There are unusual signs of a heart attack, too! Women, the elderly, and diabetics may present with atypical symptoms: Fainting/dizziness Weakness Confusion Risk Factors for a Heart Attack Some heart disease risk factors, such as age and family history, cannot be changed. Others, like smoking and lack of exercise, can be changed. Smoking High Cholesterol High Blood Pressure Family History Obesity Age Gender (Males are at higher risk) Lack of Exercise Diabetes Diet Stress Excessive Alcohol Intake If you or someone you know is experiencing the signs and symptoms of a heart attack, DON???T DELAY. Call immediately and seek help. If someone collapses, perform CPR! Do not attempt to drive if you are having symptoms of heart attack. Hands-Only CPR Why Hands-Only CPR? Hands-Only CPR has been shown to be as effective as conventional CPR for cardiac arrests that occur outside of a hospital. Survival depends on immediately receiving CPR from someone nearby. How do you perform Hands-Only CPR? There are two easy steps: Call --1 if you see a teen or adult collapse Push hard and fast in the center of the chest at a beat of 100 beats per minute. Save a life! 4 WAYS TO GET AHEAD OF SEPSIS SEPSIS is a MEDICAL EMERGENCY. Time matters! Infections put you and your family at risk for a life-threatening condition called sepsis. Sepsis is the body's extreme response to an infection. It is life-threatening, and without timely treatment, sepsis can rapidly lead to tissue damage, organ failure, and . Sepsis happens when an infection you already have-in your skin, lungs, urinary tract or somewhere else-triggers a chain reaction throughout your body. 1 PREVENT INFECTIONS Take good care of chronic conditions. Talk to your doctor about getting the recommended vaccines. 2 PRACTICE GOOD HYGIENE Wash your hands frequently. Keep cuts or open sores clean and covered until they are healed. 3 KNOW THE SYMPTOMS Confusion or disorientation Shortness of breath High heart rate Fever, shivering, or feeling very cold Extreme pain or discomfort Clammy or sweaty skin 4 ACT FAST Get medical care IMMEDIATELY if you suspect sepsis or if you have an infection that is not getting better or is getting worse. To learn more about sepsis and how to prevent infections, visit www.cdc.gov/sepsis. Test Results Laboratory or Other Results This Visit (last charted value for your 08/13/2019 visit) No Laboratory or Other Results This Visit Patient Name:YAN MAJOR I have received this information and was given the opportunity to ask questions. Patient/Web Retailer Name: Patient/Web Retailer Signature: Relationship to Patient: Clinician/Hospital Web Retailer Signature: Date: documented in this encounter Plan of Treatment Not on file documented as of this encounter Visit Diagnoses Not on filedocumented in this encounter Care Teams Structured Cabling Technician Relationship Specialty Start Date End Date Daniel Cohen MD [address] [place] [address] PCP - General Family Medicine 02/06/24 documented as of this encounter
--- OUTSIDE RECORDS SUMMARY | 2025-07-25 10:51 | XMS_ITS | Patient Health Record ---
Author Organization [facility] Address [address] [facility] [place] [address] Care Team Providers Care Entry Level Java Developer Name Role Phone Shaista Moore Unavailable [phone] Reason For Referral No Information Social History Social History Sexual History: Social Info Question Answer Notes Sexual History Had sex in the past 12 months (vaginal, oral, or anal)? Yes Drugs/Alcohol: Social Info Question Answer Notes Drugs Have you used drugs other than those for medical reasons in the past 12 months? No Alcohol Screen Did you have a drink containing alcohol in the past year? Yes Points 0 Interpretation Negative Tobacco Use: Social Info Question Answer Notes Tobacco Use/Smoking Are you a former smoker Tobacco use other than smoking: Are you an other tobac co user? No Problems Problem Type SNOMED Code ICD Code Onset Dates Problem Status W/U Status Risk Notes Problem Hormone replacement therapy (468658084) Counseling for estrogen replacement therapy (Z79.890) Active confirmed Hormone replacement therapy Problem Menopause (443200342) *Menopausal and female climacteric states (Code also, associated symptoms) (N95.1) Active confirmed Menopausal and female climacteric states Problem Gynecological examination normal (04352823135056 4) Cervical smear, as part of routine gynecological examination (Z01.419) Active confirmed Annual without abnormal findings Problem Confusional state (disorder) (568211388) 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
--- OUTSIDE RECORDS SUMMARY | 2025-07-25 10:51 | XMS_ITS | Encounter Summary ---
Author Organization [facility] ([place], [place], [place], [place], [place]) Address [address] [place] [address] Care Team Providers Care Stripe Marker Name Role Phone Daniel Cohen MD Primary Care Provider [phone] Encounter Details Date Type Department Care Team (Late st Contact Info) Description 08/13/2019 Transcribed Document [facility] Family Medicine [place] [address] ProviderCarmela MD [address] [place] [id number] Social History Tobacco Use Types Packs/Day Years Used Date Smoking Tobacco: Never Assessed Comments Unknown Sex and Gender Information Value Date Recorded Sex Assigned at Not on file Legal Sex Female 5:31 PM CDT Gender Identity Not on file Sexual Orientation Not on file documented as of this encounter Miscellaneous Notes * Cerner Conversion Note - Historical ProviderMD - 08/13/2019 12:53 PM CONDOMINIUM MANAGER [facility] Endo PACU Summary Primary Physician: Finalized Date/Time: 08/13/19 13:37:46 Pt. Name: YAN MAJOR /Sex: 1950 Female Med Rec #: [id number] Physician: ROD AKHTAR MD-[facility] Financial #: [id number] Pt. Type: O Room/Bed: / Admit/Disch: 08/13/19 10:45:00 - Institution: [facility] Endo PACU Case Times Entry 1 In PACU I 08/13/19 13:18:00 Ready for PACU 08/13/19 13:37:00 Discharge Discharge from PACU 08/13/19 13:38:00 I Last Modified By: ROBERT HO RN 08/13/19 13:37:45 [facility] Endo PACU Case Times Audit 08/13/19 13:37:45 Tie Presser: LISA Modifier: MILLERMA <+> 1 Ready for PACU Discharge <+> 1 Discharge from PACU I Finalized By: ROBERT HO, RN Document Signatures Signed By: ROBERT HO RN 08/13/19 13:37 Electronically signed by Sher [facility] Conversion Leather Grader Cerner at 11/16/2022 12:50 PM CDT documented in this encounter Plan of Treatment Not on file documented as of this encounter Visit Diagnoses Not on filedocumented in this encounter Care Teams Stripe Marker Relationship Specialty Start Date End Date Daniel Cohen MD [address] [place] [address] PCP - General Family Medicine 02/06/24 documented as of this encounter
--- OUTSIDE RECORDS SUMMARY | 2025-07-25 10:51 | XMS_ITS | Clinical Summary ---
Author Organization [facility] Address [address] [place] [address] Care Team Providers Care Tar And Ammonia Pump Operator Name Role Phone Daniel Cohen MD Primary Care Provider [phone] Family History Medical History Relation Name Comments Breast cancer Neg Hx Ovarian cancer Neg Hx Social History Tobacco Use Types Packs/Day Years Used Date Smoking Tobacco: Never Assessed Comments No Sex and Gender Information Value Date Recorded Sex Assigned at Not on file Legal Sex Female 12:00 PM EDT Gender Identity Not on file Sexual Orientation Not on file Plan of Treatment Health Maintenance Due Date Last Done Comments ANNUAL PHYSICAL 1950 DXA SCAN 1950 HEPATITIS C SCREENING 1950 COLOGUARD 11/24/1995 COLON CANCER SCREENING 5 YEA R SIGMOIDOSCOPY 11/24/1995 CT COLONOGRAPHY 11/24/1995 FECAL OCCULT BLOOD TEST 11/24/1995 FIT Testing (1 year) 11/24/1995 TDAP/TD VACCINES (1 - Tdap) 10/03/1996 10/02/1996 Pneumococcal Vaccine 50+ (1 of 1 - PCV) 2000 ZOSTER VACCINE (2 of 3) 02/28/2016 01/03/2016 INFLUENZA VACCINE 02/28/2025 04/04/2024, , 05/10/2022, Additional history exists COVID-19 Vaccine (2023-2 5 season) 2025 04/04/2024, 05/01/2023, 04/13/2022, Additional history exists MAMMOGRAM 10/03/2026 10/03/2024, 11/2023, 09/28/2022, Additional history exists COLONOSCOPY 08/13/2029 08/13/2019 COLORECTAL CANCER SCREENING 08/13/2029 Procedures Procedure Name Priority Date/Time Associated Diagnosis Comments MAMMO SCREENING DIGITAL TOMOSYNTHESIS BILATERAL W CAD Routine 10/03/2024 10:57 AM EST Screening mammogram for breast cancer from Last 3 Months or Most Recently Relevant to Health Maintenance Results * Mammo Screening Digital Tomosynthesis Bilateral With CAD (10/03/2024 10:57 AM EST) Anatomical Region Laterality Modality Breast N/A Mammography 10/04/2024 3:11 PM EST Impressions 10/04/2024 3:12 PM EST Negative bilateral mammogram. RECOMMENDATION: Continue annual screening mammography. BI-RADS CATEGORY 1, NEGATIVE. CAD was utilized. The standard false-negative rate of mammography is between 10% and 25%. Complex patterns or increased breast density will markedly elevate the false-negative rate of mammography. A letter, in lay terminology, with the results of this exam will be mailed to the patient. 10/04/2024 3:[address] Kelsie Rodriguez MD on Narrative 10/04/2024 3:12 PM EST DIGITAL SCREENING MAMMOGRAM WITH TOMOSYNTHESIS HISTORY: Screening Mammography. Low dose full field digital breast tomosynthesis imaging was performed with 2D and 3D acquisitions consisting of bilateral CC and MLO views. Examination is compared to prior examination dating back to 11/03/2015. Examination is read in conjunction with computer aided detection. FINDINGS: The breast tissue is heterogeneously dense, which may obscure small masses. No suspicious masses, microcalcifications or areas of architectural distortion are present. us Chriss Sanchez MD IMG MAMMOGRAPHY ORDERABL ES Final Result from Last 3 Months or Most Recently Relevant to Health Maintenance Insurance [employer] [id number] [facility] Medicare Advantage [employer] PPO Care Teams Tar And Ammonia Pump Operator Relationship Specialty Start Date End Date Daniel Cohen MD [address] [place] [address] PCP - General 10/29/15
--- OUTSIDE RECORDS SUMMARY | 2025-07-25 10:51 | XMS_ITS | Clinical Summary ---
Author Organization [employer] ([place], [place], [place], [place], [place]) Address [address] [place] [address] Care Team Providers Care Administrative Executive Name Role Phone Daniel Cohen MD Primary Care Provider [phone] Allergies Active Allergy Reactions Criticality Noted Date [...] Date Toño rded Speak language other than Canadian at home Not on file 02/06/2024 Want [...] 02/06/2024 12:32 PM EDT Plan of Treatment Health Maintenance Due Date Last Done Comments CT Colonography 1950 DXA SCAN 1950 FOBT/FIT 1950 Fit-DNA (Cologuard) 1950 Sigmoidoscopy 1950 Depression Screening (12+) 1962 Hepatitis C Screening 1968 DTAP/TDAP/TD VACCINES (1 - Tdap) 1969 Breast Cancer Screening 1990 Pneumococcal 50+ years (1 of 1 - PCV) 2000 Shingles Vaccine (Zoster) (1 of 2) 2000 Falls Risk Screening 07/31/2024 Medicare Initial AWV [id number] 08/01/2024 Tobacco Cessation Counseling and Screening (12+) 02/05/2025 02/06/2024 COVID-19 VACCINE (1 - 2023- season) 2025 Influenza Vaccine (#1) 2025 Respiratory Syncytial Virus (RSV) Adult or (1 - 1-dose 75+ series) 2025 Colonoscopy 02/05/2034 02/06/2024, 08/13/2019 Colorectal Cancer Screening 02/05/2034 Procedures Procedure Name Priority Date/Time Associated Diagnosis Comments COLONOSCOPY Routine 08/13/2019 from Last 3 Months or Most Recently Relevant to Health Maintenance Results * COLONOSCOPY (08/13/2019) Tara Maier MD HEALTH MAINTENANCE Final Resu lt from Last 3 Months or Most Recently Relevant to Health Maintenance Insurance [facility] MEDICARE ADVANTAGE Care Teams Administrative Executive Relationship Specialty Start Date End Date Daniel Cohen MD [address] [place] [address] PCP - General Family Medicine 02/06/24
--- OUTSIDE RECORDS SUMMARY | 2025-07-25 10:51 | XMS_ITS | Encounter Summary ---
Author Organization [employer] ([place], [place], [place], [place], [place]) Address [address] [place] [address] Care Team Providers Care Shop Teacher Name Role Phone Daniel Cohen MD Primary Care Provider [phone] Encounter Details Date Type Department Care Team (Late st Contact Info) Description 08/13/2019 Transcribed Document [facility] Family Medicine [facility] [place] [address] ProviderCarmela MD [address] [place] [id number] Social History Tobacco Use Types Packs/Day Years Used Date Smoking Tobacco: Never Assessed Comments Unknown Sex and Gender Information Value Date Recorded Sex Assigned at Not on file Legal Sex Female 5:31 PM CDT Gender Identity Not on file Sexual Orientation Not on file documented as of this encounter Miscellaneous Notes * Cerner Conversion Note - Historical ProviderMD - 08/13/2019 12:00 PM QUALITATIVE RESEARCHER [facility] Fal[facility]i PreOp Summary Primary Physician: Finalized Date/Time: 08/13/19 12:42:26 Pt. Name: YAN MAJOR /Sex: 1950 Female Med Rec #: [id number] Physician: ROD AKHTAR MD[facility] Financial #: [id number] Pt. Type: O Room/Bed: / Admit/Disch: 08/13/19 10:45:00 - Institution: [facility] PreOp Case Times Entry 1 In Preop 08/13/19 11:55:00 Ready for Holding n/a Room Patient Ready for 08/13/19 12:41:00 Surgery Patient Out of Preop 08/13/19 12:41:00 Patient Out of n/a Holding Room Last Modified By: Judy Wren RN 08/13/19 12:42:20 Finalized By: Judy Wren, RN Document Signatures Signed By: Judy Wren RN 08/13/19 12:42 Electronically signed by Sher [facility] Conversion Casket Coverer Cerner at 11/16/2022 12:57 PM CDT documented in this encounter Plan of Treatment Not on file documented as of this encounter Visit Diagnoses Not on filedocumented in this encounter Care Teams Shop Teacher Relationship Specialty Start Date End Date Daniel Cohen MD [address] [address] PCP - General Family Medicine 02/06/24 documented as of this encounter
[2025-07-25 10:52] VITALS: BP 153/87; PULSE 73; RESP 18; TEMP 36.7; O2SAT 96; BMI 30.4
[2025-07-25 11:00] VITALS: BP 125/78; PULSE 64; O2SAT 93
--- NOTE | 2025-07-25 11:07 | CT_ITS ---
FINAL REPORT TECHNIQUE: Oral and IV contrast enhanced exam This study was performed with techniques to keep radiation doses as low as reasonably achievable, (ALARA). Individualized dose reduction techniques using automated exposure control or adjustment of mA and/or kV according to the patient''s size were employed. CLINICAL HISTORY: RLQ/RUQ pain, hx of hernia COMPARISON: none FINDINGS: Abdomen: Lung bases are clear. Solid abdominal organs are unremarkable. There is cholelithiasis without acute gallbladder disease. The ileocecal junction is located more superiorly than typically seen, anterior to the liver. There is short segment wall thickening with surrounding stranding of the splenic flexure hernia of the colon. Differential considerations include focal colitis, diverticulitis, ischemia, or, less likely, neoplasm. Pelvis: The appendix is absent per history. There is moderate sigmoid diverticulosis. Mild fecal impaction is noted. Uterine fibroids are present. No free fluid. IMPRESSION: Abnormal wall thickening of the splenic flexure with differential as above. Favor acute inflammation. No associated obstruction. Uncomplicated cholelithiasis. Reviewed, Interpreted and Dictated by Leo Sandoval MD Transcribed by Madison Escoto Authenticated and [facility]
--- NOTE | 2025-07-25 11:09 | HMH.EDGENADL ---
Discharge Plan Disposition Patient Disposition: Home, Self-Care Prescriptions Prescriptions: No Action ciprofloxacin HCl [Cipro] 500 mg tablet 500 mg PO BID 10 Days Qty: 20 0RF ondansetron 4 mg Tablet,Disintegrating 4 mg PO Q8H PRN (Reason: Nausea) Qty: 12 0RF doxycycline monohydrate 100 MG tablet 100 mg PO Q12 10 Days Qty: 20 0RF Referrals Follow up/Referrals: Jeni Cohen MD [Primary Care Provider, Medical] - See instructions Jung Sevilla MD [Staff Physician, General Surgery] - See instructions Activity Restrictions/Add. Instructions Additional Instructions/Restrictions: Your CT scan showed some inflammation of the colon. You can take Tylenol and ibuprofen to help with your symptoms. Continue to hydrate well. Avoid greasy foods. You are also found to have gallstones but no inflammation of your gallbladder. If you start develop new or worsening symptoms, such as nausea, vomiting and abdominal pain after eating, worsening pain in the right upper abdomen, I am giving you a referral to our surgeon, Dr. Sevilla and encourage you to contact his office or return to the emergency department if symptoms are severe. If you develop any new or worsening symptoms, or if you become concerned for your help for any reason, return to the emergency department for evaluation. Clinical Impressions Clinical Impression: Colitis, Cholelithiasis Print Language Print Language: Martiniquais Discharge ED Provider: Missael Simeon Adult HPI General Chief complaint: PAIN Stated complaint: hernia complications Time Seen by Provider: 07/25/25 10:55 Mode of Arrival: Ambulatory Source of Information: Patient Description of Symptoms (Recalled from ER Triage Doc. by RN): Patient states that she had an appendectomy many years ago and it caused a hernia in her right up quadrant. States last night she reached to turn on a lamp when she felt a pop in that area. States that now if she has to reach or bend over it causes horrible pain. Denies nausea, vomiting or diarrhea. History of Present Illness HPI narrative: Willow Harp is a 74y female with a past medical history of cardiac arrhythmia on metoprolol who presents to the emergency department for complaints of right sided abdominal pain. Patient states that many years ago, she had a laparoscopic appendectomy and was told that she had a hernia after the surgery. She states it has not bothered her, however last night she reached over to turn off a lamp and felt a pop in her right abdomen. She states that today, the pain in her right abdomen is worse. She states that at rest, it is not painful, however certain movements make the pain sharp and severe. She denies any bulging to the area or skin color changes. She had a bowel movement this morning that was normal without blood or diarrhea. She has not had any vomiting and does not feel nauseated. She denies any chest pain or shortness of breath. She has not taken any medication for her symptoms prior to arrival. Related Data Previous Rx's ?Medication ?Instructions ?Recorded doxycycline monohydrate 100 mg 100 mg PO Q12 10 days #20 tabs 12/25/21 tablet ciprofloxacin HCl 500 mg tablet 500 mg PO BID 10 days #20 tabs 07/14/24 (Cipro) ondansetron 4 mg disintegrating 4 mg PO Q8H PRN Nausea #12 tabs 07/14/24 tablet Allergies Allergy/AdvReac Type Severity Reaction Status Date / Time Penicillins Allergy Verified 12/25/21 09:33 [facility] Disclaimer: The information contained in this section may have been updated after the patient was seen, as this information can be updated by other users. Social History (Updated 07/18/24 @ 20:22 by Chriss Mackenzie APRN) Smoking Status: Never smoker alcohol intake: never current occupational status: retired Travel in the last 8 weeks?: None Have you lived/traveled outside [place] in past 30 days?: No Contact w/someone who lives/traveled outside [place] past 30 days?: No Exposure to someone with infectious disease in past 14 days?: No Do you have a fever (greater than 100.4 F or 38 C)?: No Have you tested positive for COVID-19?: No Exposed to someone with COVID-19 in past 14 days?: No Do you have a sore throat?: No Do you have a cough?: No Do you have any weakness?: No Do you have any diarrhea?: No Are you experiencing any unusual bleeding?: No Do you have any muscle aches/pain?: No Do you have any abdominal pain?: No Are you experiencing loss of taste or smell?: No ROS Obtained: Yes Systems reviewed as appropriate & no additional complaints except as documented Physical Exam General General appearance: alert and in no apparent distress Head Head exam: atraumatic Eye Eye exam: Present normal appearance ENT ENT exam: Present normal external ear exam Neck Neck exam: Present full ROM Chest Chest inspection: Present symmetric chest wall rise Respiratory Respiratory exam: Present normal lung sounds bilaterally; Absent respiratory distress Cardiovascular Cardiovascular exam: Present regular rate and normal rhythm Abdominal Exam Abdominal exam: Present soft, tenderness (Epigastric tenderness (patient states that she feels pain in her right mid abdomen with palpation in the epigastric region)) and guarding (Mild grimacing with palpation in the epigastric region); Absent distention or rigidity Extremities Exam Extremities exam: Present normal inspection Back Exam Back exam: Present normal inspection Neurological Exam Neurological exam: Present alert and oriented X3 Psychiatric Psychiatric exam: Present normal affect Skin Skin exam: Present warm and dry Medical Decision Making Medical Records Screening: Per USPSTF and CDC recommendations, given the prevalence of disease in our region, it is our hospital?s policy to screen for HIV and viral Hepatitis for all patients aged 18 and over and those with ongoing risk factors. Rony Inquiry Pt receiving controlled substance: No Vital Signs: 07/25/25 10:52 07/25/25 11:00 07/25/25 11:32 Temperature 98.0 F Temperature Source Oral Pulse Rate 64 Pulse Rate [Radial] 73 Respiratory Rate 18 Blood Pressure 125/78 144/97 H Blood Pressure [Right Arm] 153/87 H Blood Pressure Mean 112 Blood Pressure Mean [Right Arm] 109 Blood Pressure Source [Right Arm] Automatic Cuff Blood Pressure Position [Right Arm] Sitting 02 Sat by Pulse Oximetry 96 93 L Oxygen Delivery Method Room Air Room Air 07/25/25 11:35 07/25/25 12:00 Temperature Temperature Source Pulse Rate 54 L Pulse Rate [Radial] Respiratory Rate Blood Pressure 145/99 H 127/77 Blood Pressure [Right Arm] Blood Pressure Mean 112 Blood Pressure Mean [Right Arm] Blood Pressure Source [Right Arm] Blood Pressure Position [Right Arm] 02 Sat by Pulse Oximetry 95 Oxygen Delivery Method Room Air Lab Data Lab Results 07/25/25 11:00: WBC 6.7, RBC 4.70, Hgb 13.7, Hct 41.8, MCV 88.9, MCH 29.1, MCHC 32.8, RDW 14.4, Plt Count 299, MPV 10.0, Neut % (Auto) 69.7, Lymph % (Auto) 21.5, Wright % (Auto) 6.2, Eos % (Auto) 1.9, Baso % (Auto) 0.4, Neut # (Auto) 4.7, Lymph # (Auto) 1.5, Wright # (Auto) 0.4, Eos # (Auto) 0.1, Baso # (Auto) 0.0, PT 10.4, INR 0.93, Sodium 139, Potassium 4.3, Chloride 106, Carbon Dioxide 24, Anion Gap 13.3, BUN 20 H, Creatinine 1.00, Estimated Creat Clear 67, Estimated GFR 54 L, Est GFR ( Amer) 66, Glucose 130 H, Calcium 10.0, Total Bilirubin 0.6, AST 28, ALT 16, Alkaline Phosphatase 77, Total Protein 7.6, Albumin 4.5, Globulin 3.1, Albumin/Globulin Ratio 1.5, Lipase 123 07/25/25 11:21: Lactate 0.7 07/25/25 11:40: Urine Color Yellow, Urine Appearance Clear, Urine pH 6.0, Ur Specific [place] <= 1.005, Urine Protein Negative, Urine Glucose (UA) Negative, Urine Ketones Negative, Urine Blood 1+ A, Urine Nitrate Negative, Urine Bilirubin Negative, Urine Urobilinogen 0.2, Ur Leukocyte Esterase Negative, Urine RBC None, Urine WBC None, Ur Squamous Epith Cells Occasional, Ur Transition Epith Cell Occ, Urine Bacteria Trace 07/25/25 11:00 07/25/25 11:00 Orders (Tests/Meds): ED MEDICATIONS Discontinued Medications Generic Name Dose Route Start Last Admin Trade Name Freq PRN Reason Stop Dose Admin Iopamidol 75 ml 07/25/25 11:35 07/25/25 11:35 Iopamidol-370 (76%);100ml Bottle IV 07/25/25 11:36 75 ml ONCE ONE Administration Sodium Chloride 10 ml 07/25/25 11:35 07/25/25 11:35 Sodium Chloride 0.9% 10ml Syr (Rad Only) IV 07/25/25 11:36 10 ml ONCE ONE Administration ORDERS Category Date Time Status CT abdomen pelvis w con Stat Cat Scan 07/25/25 11:07 Completed POCUS Point of Care (ER Only) Stat Exams 07/25/25 11:43 Completed CBC w/Auto Diff [Complete Blood Count Auto Diff] Stat Lab 07/25/25 11:00 Completed CMP [Comprehensive Metabolic Panel] Stat Lab 07/25/25 11:00 Completed HIV Combo Stat Lab 07/25/25 11:00 Received Hepatitis C Ab Qual. W/ RFX Stat Lab 07/25/25 11:00 Received Lactic Acid Stat Lab 07/25/25 11:21 Completed Lipase Stat Lab 07/25/25 11:00 Completed PT INR [Prothrombin Time INR] Stat Lab 07/25/25 11:00 Completed UA [Urinalysis and Microscopic] Stat Lab 07/25/25 11:40 Completed EKG Request [ECG Request] Stat Y 07/25/25 11:12 Ordered Medical Decision Narrative: Willow Harp is a 74y female with a past medical history of cardiac arrhythmia on metoprolol who presents to the emergency department for complaints of right sided abdominal pain. Patient states that many years ago, she had a laparoscopic appendectomy and was told that she had a hernia after the surgery. She states it has not bothered her, however last night she reached over to turn off a lamp and felt a pop in her right abdomen. She states that today, the pain in her right abdomen is worse. She states that at rest, it is not painful, however certain movements make the pain sharp and severe. She denies any bulging to the area or skin color changes. She had a bowel movement this morning that was normal without blood or diarrhea. She has not had any vomiting and does not feel nauseated. She denies any chest pain or shortness of breath. She has not taken any medication for her symptoms prior to arrival. On arrival, patient is normotensive, heart rate within normal limits, afebrile, breathing comfortably on room air, oxygen at time of my evaluation 95% on room air. Physical exam, stated above, revealed overall well-appearing female in no significant distress. Cardiopulmonary exam is unremarkable. Abdomen is tender in the epigastric region, however she states that she feels the pain in the right mid abdomen with palpation in the epigastric region. Abdomen is otherwise soft, nonperitonitic, without obvious hernia or duskiness of the skin. Differential diagnosis includes, but is not limited to: Incarcerated internal hernia, volvulus, acute pancreatitis, acute cholecystitis, muscle strain, UTI/pyelonephritis, ureterolithiasis, among others. The most morbid conditions were considered and workup was based on these. Patient was offered pain medication, however she declined at this time Workup in the emergency department included: Hematologic labs, urinalysis, EKG, CT abdomen pelvis with IV contrast. EKG interpreted by me personally. Sinus bradycardia with no ST elevation or depression. Ventricular rate of 58 bpm. QTc normal at 423 Labs were studies show no leukocytosis, no anemia, platelets within normal limits. Coagulation studies within normal limits. No CURT. Electrolytes within normal limits. Very mildly elevated BUN of 20. Lactate normal at 0.7. Lipase normal at 123. Liver enzymes and bilirubin within normal limits. Urinalysis showed 1+ blood but no RBCs on microscopy and no white blood cells on microscopy. No evidence of urinary tract infection. CT abdomen pelvis was interpreted by me personally. Patient has gallstones without evidence of cholecystitis. There is also wall thickening of the colon at the splenic flexure consistent with acute inflammation on my interpretation, likely colitis. Per radiology, patient also has uncomplicated cholelithiasis. See final radiology report for details. I did perform a right upper quadrant [id number] ultrasound. Patient does have cholelithiasis without evidence of choledocholithiasis or acute cholecystitis. See procedure note for details. On reassessment, patient remains in stable condition. I do feel that she is appropriate for discharge at this time. Recommended conservative management of her colitis at home with Tylenol, ibuprofen, hydration. Will provide referral to her general surgery team for follow-up regarding her cholelithiasis, however I have low suspicion that this is causing her symptoms at this time. She states that she does not have any postprandial pain, nausea or vomiting. Return precautions were given. All questions were answered. She demonstrated understanding and was in agreement this plan. She was then discharged from the emergency department in stable condition. Procedures Limited Ultrasound Indication:: Limited RUQ ultrasound Indication: Abdominal pain Identified structures: -Gallbladder -Gallbladder wall -Common bile duct -Liver Findings: Sonographic Lott sign: Absent Gallstones: Present Sludge: Absent Pericholecystic fluid: Absent Maximal GB wall thickness (mm): Normal is </= 3mm Normal Common bile duct width (mm): Normal is </= 6mm Normal Gallbladder width (cm): Normal is < 4cm Normal Gallbladder length (cm): Normal is < 10cm Normal Impression: -Cholelithiasis without evidence of cholecystitis or choledocholithiasis Images were saved to permanent archive The study was technically adequate CPT 47821-82 This study was performed by me, Missael Simeon MD, and I personally interpreted all images/videos. Based on my clinical judgement, these images were adequate and did not necessitate further imaging. Critical Care Critical Care Time Critical Care Time: No
--- NOTE | 2025-07-25 11:12 | ECG_ITS ---
APPROVED REPORT Exam: Resting ECG HR:58 bpm ECG Measurements Heart Rate 58 AXES AZ 152 P 67 QRSd 93 QRS 62 QT 427 T 64 QTc 423 Conclusion SINUS BRADYCARDIA BORDERLINE ECG UNCONFIRMED REPORT Sinus bradycardia. No STEMI Electronically signed by : MURPHY BROOKS, 07/25/2025 15:21:30
[2025-07-25 11:14] LABS: Hematocrit 41.8 % (37.0-47.0); Hemoglobin 13.7 g/dL (12.2-16.2); Immature Granulocytes % 0.3 %; Mean Corpuscular HGB Conc 32.8 g/dL (31.8-35.4); Mean Corpuscular Hemoglobin 29.1 pg (27.0-31.2); Mean Corpuscular Volume 88.9 fl (81-99); Nucleated Red Blood Cells % 0 %; Platelet Count 299 K/mm3 (142-424); Red Blood Count 4.70 M/mm3 (4.20-5.40); Red Cell Distribution Width-SD 46.7 fL; White Blood Count 6.7 K/mm3 (4.8-10.8)
[2025-07-25 11:16] LABS: Albumin Level 4.5 g/dl (3.5-5.0); Chloride 106 mmol/L (98-107); Potassium 4.3 mmoL/L (3.5-5.1); Sodium 139 mmol/L (136-145)
[2025-07-25 11:19] LABS: Alanine Aminotransferase 16 U/L (12-78); Albumin/Globulin Ratio 1.5 (1.1-1.8); Alkaline Phosphatase 77 U/L (38-126); Anion Gap 13.3 mEq/L (5-15); Aspartate Amino Transferase 28 U/L (14-36); Bilirubin,Total 0.6 mg/dl (0.2-1.3); Blood Urea Nitrogen 20 mg/dl (7-17); Calcium 10.0 mg/dl (8.4-10.2); Carbon Dioxide 24 mmol/L (22.0-30.0); Creatinine Clearance Estimated 67 mL/min (50-200); Creatinine,Serum 1.00 mg/dl (0.52-1.04); Estimated Glomerular Filt Rate 54 ml/min (>60); GFR (African American) 66 ML/MIN (>60); Globulin 3.1 g/dL (1.3-3.2); Glucose 130 mg/dl (74-100); Lipase 123 U/L (23-300); Total Protein,Serum 7.6 g/dl (6.3-8.2)
[2025-07-25 11:22] LABS: INR 0.93 (0.9-1.1); Prothrombin Time 10.4 seconds (10.1-12.5)
--- NOTE | 2025-07-25 11:28 | PC.NURSE ---
pt transported to radiology
--- NOTE | 2025-07-25 11:28 | PC.NURSE ---
pt aware of need for ua
[2025-07-25 11:32] VITALS: BP 144/97
[2025-07-25 11:35] VITALS: BP 145/99
[2025-07-25] MEDS: IOPAMIDOL-370 (76%);100ML BOTTLE 75 ML IV (11:35)
[2025-07-25] MEDS: SODIUM CHLORIDE 0.9% 10ML SYR (RAD ONLY) 10 ML IV (11:35)
[2025-07-25 11:44] LABS: Microscopic, Urine URINE MICROSCOPIC (MICROSCOPIC)
[2025-07-25 11:47] LABS: Bilirubin,Urine Negative (Negative); Color,Urine YELLOW (Yellow); Glucose,Urine (UA) Negative (Negative); Ketones,Urine Negative (Negative); Leukocyte Esterase,Urine Negative (Negative); PH,Urine 6.0 (5.0-8.5); Protein,Urine Negative (Negative); Specific Gravity, Urine <= 1.005 (1.005-1.030); Urobilinogen,Urine 0.2 EU/dl (0.2)
[2025-07-25 11:57] LABS: Bacteria,Urine Trace /lpf; Squamous Epithelial Cell,Urine Occasional #/hpf (0-5); Transitional Epi Cells,Urine OCC #/lpf (0-3)
[2025-07-25 12:00] VITALS: BP 127/77; PULSE 54; O2SAT 95
[2025-07-25 12:25] VITALS: BP 127/77; PULSE 55; RESP 18; TEMP 36.7; O2SAT 97
[2025-07-25 12:31] LABS: Hepatitis C Ab Qual. W/ RFX NEGATIVE (Negative)
== END 2025-07-25 12:26 | disposition home or self-care (01) ==
PROVIDERS: Emergency Provider Student in an Organized Health Care Education/Training Program; PCP Family Medicine
DX: K80.18 Calculus of gallbladder with other cholecystitis without obstruction (principal); R10.13 Epigastric pain; R00.1 Bradycardia, unspecified
CPT/HCPCS: 74177; 80053; 81001; 83605; 83690; 85025; 85610; 86803; 87389; 93005; 99285; Q9967